=== PATIENT | female | born 1970 | race Two or more races ===

== ENCOUNTER 2020-05-30 02:09 | Emergency (ER) | payer OTHER ==
[~2020-05-30] VITALS: Ht 154.9 cm; Wt 62.1 kg
[2020-05-30] MEDS ORDERED: LEVOFLOXACIN500 MG PO (07:55)
[2020-05-30] MEDS ORDERED: TAMS0.4C PO (07:55)
[2020-05-30] MEDS ORDERED: KETO10TA2 PO (07:55)
== END 2020-05-30 11:28 | disposition home or self-care (01) ==
LOC: ER 02:09
DX: N20.0 Calculus of kidney (principal); R10.32 Left lower quadrant pain